=== PATIENT | male | born 1990 | race Caucasian/White ===

== ENCOUNTER 2019-02-06 08:54 | Emergency (ER) | payer BC, SELFPAY ==
[2019-02-06 08:56] VITALS: BP 159/75; PULSE 105; RESP 18; TEMP 36.6; O2SAT 100; BMI 28.5
--- NOTE | 2019-02-06 09:07 | RAD_ITS ---
STUDY: X-RAY - LEFT SHOULDER REASON FOR EXAM: Male, 29 years old. Pain. No known injury. TECHNIQUE: 4 view(s) of the shoulder. COMPARISON: None. FINDINGS: Normal glenohumeral articulation. Normal acromioclavicular joint. Normal acromion. Normal humeral head and visualized proximal humerus. The soft tissue structures are unremarkable. Normal visualized pulmonary apex. RAD/Shoulder min 2 Views IMPRESSION: Normal x-ray examination of the shoulder. Electronically Signed: Marco Antonio Mayo, at 9:43 EST , Service support ,
--- NOTE | 2019-02-06 09:07 | ED.DCSUM_ITS ---
History of Present Illness Chief Complaint: Upper Extremity Injury Informant: Patient Occurred: Today Context: Gradual Onset Timing: Continuous Quality of Pain: Aching Narrative: Patient is a 29-year-old male with no past medical history presenting with atraumatic left shoulder pain. Patient states he woke up from sleep and noticed that his left shoulder was hurting. He states it is over his upper shoulder and then radiate slightly down. It seems to be worse when he puts his hand over his head. He describes the pain as aching. Patient did not take any medication for pain. He notes the pain is slightly better than when he first woke up. 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 He notes he has been working last few days because he has had GI bug. He denies any associated numbness or tingling. He denies any weakness of the hand. He denies any other complaints at this time. Past Medical History - Allergies and Home Meds Allergies/Adverse Reactions: Allergies No Known Allergies Allergy (Verified 02/06/19 08:57) Primary Care Physician: Tereza Hawley MD [STAFF PHYSICIAN] - Past Medical History: None Surgical History: noncontributory Lives: Spouse/ Significant Other Review of Systems General: Denies: Chills, Fever, Sweats Eyes: Denies: Visual changes - bilaterally, Diplopia ENT: Denies: Rhinorrhea, Sore throat Cardiovascular: Denies: Chest pain, Palpitations Respiratory: Denies: Dyspnea, Cough, Dyspnea on exertion Gastrointestinal: Denies: Abdominal pain, Nausea, Vomiting, Diarrhea, Melena, Hematochezia Genitourinary: Denies: Dysuria, Hematuria, Frequency Musculoskeletal: Reports: Extremity Pain - Left shoulder pain. Denies: Back pain, Swelling Skin: Denies: Rash, Wounds Neurological: Denies: Headache, Weakness, Numbness Physical Exam Vital Signs/Narrative: Vital Signs Temp Pulse Resp BP Pulse Ox 02/06/19 08:56 98 F 105 H 18 159/75 H 100 Inital Vital Signs reviewed: Yes Left Shoulder: - - No reproducible tenderness with direct palpation. Range of motion is intact in all planes however patient has had worsening pain abduction above 90 degrees as well as flexion of the elbows against resistance. No tenderness over the head of the biceps tendon.. Negative for: Deformity, Hematoma, Limited ROM General: Well nourished, Well developed Head: Normocephalic, Atraumatic Eyes: Perrl, EOMI ENT: No Trauma, Moist Mucous Membranes Neck: Nontender, Full ROM Cardiovascular: Regular rate, Regular rhythm, No murmurs Respiratory: No distress, CTA bilaterally, Chest nontender Abdomen: Soft, Nontender, Nondistended, Normal bowel sounds Back: Nontender Skin: Normal color, No rash Neurological: Alert, Oriented x3, Cranial nerves II-XII grossly intact, Normal Strength, Normal Sensation, - - Normal strength and sensation of the extrinsic muscles of the hand and in all dermatomes. Psychological: Normal affect, Tearful - During exam Diagnostic/Tx/Re-eval Clinical Impression(s) from Imaging Studies Shoulder X-Ray 02/06/19 09:07 IMPRESSION: Normal x-ray examination of the shoulder. Electronically Signed: Marco Antonio Liunavneet, at 9:43 EST , Service support , - Medical Decision Making Patient is evaluated for atraumatic left shoulder pain. He does have pain with range of motion but range of motion is intact. No obvious bony tenderness or tenderness palpation of the tendinous insertions of the shoulder. X-rays obtained which does not show any significant joint effusion or other acute abnormality. He is neurovascularly intact. I do not suspect joint infection. Patient was treated with Motrin and Tylenol in the emergency room. He is initia lly tachycardic upon arrival but I believe this is secondary to pain and some anxiety. Patient was counseled that his pain is likely from inflammation of the shoulder. 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 He is counseled to return emergency room should he develop any associated chest pain, shortness of breath, fever or difficulty breathing. He is given a work note for today and tomorrow. Patient is counseled on signs and symptoms requiring return to the emergency room. Patient verbalizes agreement and understand this plan. Patient discharged home in stable and improved condition. ED Disposition - Plan for ED Patient: Disposition: Home or Assisted Living Diagnosis: Left shoulder pain Instructions: SHOULDER PAIN (Uncertain Cause) Prescriptions: Ibuprofen [Motrin] 600 mg PO Q6H PRN PRN #20 tab PRN Reason: Pain/Inflammation Prescription Printed Referrals: Tereza Hawley MD [STAFF PHYSICIAN] - Additional Instructions: Likely there is some inflammation in her shoulder that is causing the pain. Anti-inflammatories and rest as well as ice should help it. Return to emergency room if you develop worsening symptoms or if you develop fever, chest pain or difficulty breathing. Please follow-up with a primary care doctor. You been given information for one today.
[2019-02-06] MEDS: Acetaminophen 500 MG Tablet 1000 MG PO (09:15)
[2019-02-06] MEDS: Ibuprofen 600 MG Tablet PO (09:15)
[2019-02-06 10:34] VITALS: PULSE 83; RESP 17; O2SAT 100
== END 2019-02-06 10:35 | disposition home or self-care (01) ==
PROVIDERS: Emergency Provider Emergency Medicine
DX: M25.512 Pain in left shoulder (principal)
CPT/HCPCS: 73030; 99283

== ENCOUNTER 2019-05-11 21:13 | Emergency (ER) | payer BC, SELFPAY ==
[2019-05-11 21:14] VITALS: BP 142/92; PULSE 92; RESP 16; TEMP 36.9; O2SAT 100; BMI 29.7
--- NOTE | 2019-05-11 22:59 | CT_ITS ---
STUDY: CT ABDOMEN AND PELVIS WITH CONTRAST REASON FOR EXAM: Male, 29 years old. PT STATED LOWER ABDOM PAIN X 1 WEEK, HX OF HERNIA RADIATION DOSAGE (If Supplied By Facility): CTDIvol = ( 15.9 ) mGy, DLP = ( 1326.24 ) mGycm TECHNIQUE: Transaxial images were obtained from the dome of the diaphragm to the symphysis pubis without oral contrast. IV 100mL Isovue-300 was administered. Sagittal and coronal images were reconstructed. Individualized dose optimization techniques were used for this CT. COMPARISON: None. FINDINGS: The visualized lung bases are unremarkable. The visualized portions of the heart are within normal limits. Normal liver. Normal gallbladder and extrahepatic biliary system. Normal spleen. Normal pancreas. Normal bilateral adrenal glands. Normal right kidney. Normal left kidney. Normal visualized stomach. Normal small intestine. Normal colon. The appendix is visualized and appears normal. Normal abdominal aorta. Normal inferior vena cava. Normal retroperitoneum. Normal urinary bladder. Normal visualized prostate gland. Normal abdominal wall. Normal osseous structures. CT/Abdomen/Pelvis W IV Cont ONLY IMPRESSION: Normal enhanced CT of the abdomen and pelvis. No hernia identified. Electronically Signed: Fantasma Ramos, at 23:51 EDT Tel , Service support ,
--- NOTE | 2019-05-11 23:00 | ED.VISSUMM ---
- ER Visit Summary Date of Service: 05/11/19 Chief Complaint: Lower quadrant abdominal pain History of Present Illness: The patient is a 29 M history of prior liver biopsy for fatty liver. And prior bilateral inguinal hernia repair as a small child. Patient states for the last week he had right lower quadrant abdominal pain. Today he had nausea with no vomiting. No diarrhea. No constipation. No fever. No dysuria or hematuria no history of stones. No abdominal trauma. Physical Examination: Well-appearing 21-year-old male no acute distress vital signs stable afebrile. H EENT exam unremarkable. Neck nontender. No lymphadenopathy. Lungs clear to auscultation bilaterally. Heart regular rhythm no murmur. Abdomen soft nondistended normal bowel sounds no peritoneal signs. Both upper quadrants and left lower quadrant completely nontender. Nondistended. No obvious masses. No signs of obstruction. His tenderness is below inferior and lower than his right lower quadrant. He has bilateral hernia repairs that are well-healed from years ago. His external exam is nontender. Nonswollen. There is no obvious hernia. There is no testicular tenderness, masses or swelling. No inguinal lymphadenopathy. Back nontender. He is moving all 4 extremities. Neurovascular intact. Neurologically is awake and alert. Test Results: White count of 6 hemoglobin 15. Chemistries normal normal creatinine gap. Liver enzymes normal. UA normal. CT abdomen pelvis with both IV and oral contrast shows no acute abnormality. Read by radiologist reviewed by me. Appendix is seen and is normal. And there is no acute obvious hernia seen. Emergency Department Course and Treatment: Patient with lower abdominal pelvic pain. Appears to be lower than McBurney's point. Appendicitis is a possibility but clinically I think low likelihood. This could be a hernia. There is no signs of obstruction, strangulation or incarceration. CAT scan labs are being obtained. He did not waiting for pain or nausea. Lamonte exam at 00 50 a.m. patient doing well. We went over all test results. Treatment Plan: Follow-up for further evaluation. Disposition: Discharge Impression: Right lower abdominal pain of uncertain etiology This note was generated with [employer] dictation software. It may contain incorrect words, spelling, and punctuation that were not noted in review of the chart prior to signing ED Disposition - Plan for ED Patient: Referrals: Care Physician,No Primary [Primary Care Provider] -
[2019-05-11 23:16] LABS: Bacteria 0 SEEN /hpf (None Seen); Mucous, Urine 0 SEEN /hpf (<or=2+); Red Blood Cells-Urine 0 SEEN /hpf (0-5); Squamous Epithelial Cells - UA 0 SEEN /hpf (0-5)
[2019-05-11 23:20] LABS: Color, Urine Yellow (Yellow); Glucose, Dipstick Normal (Normal); Ketone-Dipstick Negative (Negative); Leukocyte Esterase-Dipstick Negative /ul (Negative); Nitrite-Dipstick Negative (Negative); Occult Blood-Urine Negative /ul (Negative); Protein-Dipstick Negative (Negative); Urine Bilirubin Dipstick Negative (Negative); Urine Clarity Clear (Clear); Urine Urobilinogen Normal (Normal)
[2019-05-11 23:20] LABS: Absolute Lymphocyte Count 1.66 X10^3/uL (0.83-4.51); Absolute Neutrophil Count 3.5 X10^3/uL (2.0-7.7); Basophil# 0.06 X10^3/uL; Eosinophil# 0.24 X10^3/uL; Eosinophils% 3.8 % (0-5); Hematocrit 47.2 % (40-54); Hemoglobin 15.9 g/dL (13.0-16.5); Lymphocyte # 1.66 X10^3/ul (4.0); Lymphocyte % 26.4 % (19-41); Mean Corp Hgb Conc 33.7 g/dL (32-36); Mean Corpuscular Hgb 29.9 pg (27.0-32.0); Mean Corpuscular Volume 88.9 fL (80-94); Mean Platelet Vol. 9.4 fl (6.2-12.0); Monocyte# 0.78 X10^3/uL; Monocyte% 12.4 % (0-10); NRBC Flagged by Analyzer 0 % (0-5); Neutrophil # 3.53 X10^3/uL (2.7-7.7); Neutrophil % 56.2 % (47-70); Platelet Count 365 K/mm3 (150-450); RBC Distribution Width CV 12.4 % (11.6-14.6); RBC Distribution Width SD 40.6 fl (35.1-43.9); Red Blood Count 5.31 M/mm3 (4.6-6.2); White Blood Count 6.3 K/mm3 (4.4-11.0)
[2019-05-11 23:30] LABS: White Blood Cells 0-5 SEEN /hpf (0-5)
[2019-05-11 23:36] LABS: AST(SGOT) 29 U/L (15-37); Alanine Aminotransfer ALT/SGPT 61 U/L (16-61); Albumin, Serum 4.3 g/dL (3.2-5.0); Alkaline Phosphatase 69 U/L (45-117); Anion Gap 7 (5-15); BUN 15 mg/dL (7-18); BUN/Creat Ratio 13.3 RATIO (10-20); Bilirubin, Direct 0.07 mg/dL (0.00-0.30); Calcium,Total 8.8 mg/dL (8.5-10.1); Chloride 106 mmol/L (98-107); Creatinine, Serum 1.13 mg/dL (0.70-1.30); EST Glomerular Filtration Rate 82 mL/min (>60); Est Glom Filt Rate - Afr Amer 99 mL/min (>60); Estimated Creatinine Clearance 103.66 ml/min; Globulin 3.5 g/dL (2.2-4.2); Glucose 99 mg/dL (74-106); Protein, Total 7.8 g/dL (6.4-8.2); Sodium Level 138 mmol/L (136-145)
[2019-05-12 00:03] VITALS: BP 124/63; PULSE 60; RESP 18; O2SAT 96
--- NOTE | 2019-05-12 00:52 | ED.DEP ---
ED Disposition - Plan for ED Patient: Disposition: Home or Assisted Living Instructions: ABDOMINAL PAIN, Unkown Cause, (Male) Referrals: Kyle Green MD [NON-STAFF] - 1 Week if not improving
[2019-05-12 01:01] VITALS: BP 134/97; PULSE 66; RESP 18; O2SAT 99
== END 2019-05-12 01:02 | disposition home or self-care (01) ==
PROVIDERS: Emergency Provider Emergency Medicine
DX: R10.31 Right lower quadrant pain (principal); R11.0 Nausea
CPT/HCPCS: 74177; 80048; 80076; 81001; 85025; 99283; Q9967; A4216

== ENCOUNTER → 2021-11-24 | Outpatient (CLI) | payer BC, SELFPAY ==
--- NOTE | 2021-11-24 08:05 | CT_ITS ---
STUDY: CT MAXILLOFACIAL SINUSES REASON FOR EXAM: Male, 31 years old. SINUSITIS RADIATION DOSAGE (If Supplied By Facility): CTDIvol = ( 33.06 ) mGy, DLP = ( 825.58 ) mGycm TECHNIQUE: The patient was scanned in a multi detector CT scanner. High resolution axial imaging was performed without the administration of intravenous contrast material. Sagittal and coronal images were reconstructed. Individualized dose optimization techniques were used for this CT. COMPARISON: None. FINDINGS: FRONTAL SINUSES: Normal aeration, without mucosal inflammatory disease. ETHMOIDAL SINUSES: Mild degree of mucosal thickening more prominent in the right ethmoid sinus. MAXILLARY SINUSES: Mild degree of mucosal thickening of both maxillary sinuses. SPHENOIDAL SINUSES: Normal aeration, without mucosal inflammatory disease. There is compromise of the bilateral maxillary infundibula due to mucosal hypertrophy. Normal bilateral middle turbinates. There is hypertrophy of the left inferior nasal turbinate. There is a left sided nasal septal deviation with a left sided nasal septal spur. There is patency of the bilateral nasal airways. The visualized osseous structures are normal. The visualized bilateral orbital contents are normal. CT/Sinus/Facial Bone IMPRESSION: Mild degree of mucosal thickening of the maxillary sinus bilaterally as well as the ethmoid sinuses more prominent on the right side. Mucosal thickening at the level of the maxillary infundibula bilaterally. Nasal septal deviation to the left side of the midline. Electronically Signed: Marco Antonio Mayo MD at 9:24 EDT ,
--- NOTE | 2021-11-24 08:10 | RAD_ITS ---
STUDY: X-RAY - ESOPHAGUS (BARIUM SWALLOW) WITH FLUOROSCOPY REASON FOR EXAM: Male, 31 years old. GERD TECHNIQUE: 17 view(s) of the esophagus were obtained following swallowing of barium. FLUOROSCOPY TIME (if supplied): (34 seconds) minutes/seconds COMPARISON: None. FINDINGS: There is no demonstrated esophageal foreign body. There is no demonstrated stricture or mucosal abnormality. Normal gastroesophageal junction, without a demonstrated hiatal hernia. The patient ingested a 12 mm tablet of barium without any difficulty. Normal visualized aortic arch and descending thoracic aorta. Normal visualized pulmonary parenchyma. Normal visualized osseous structures of the thorax. RAD/Esophagus Dual Contrast IMPRESSION: Normal plain film x-ray examination (barium swallow) of the esophagus. Electronically Signed: Marco Antonio Mayo MD at 9:32 EDT ,
== END | disposition home or self-care (01) ==
LOC: CT 08:03
PROVIDERS: Referring Provider Otolaryngology; Visit Provider Otolaryngology
DX: K21.9 Gastro-esophageal reflux disease without esophagitis (principal); J32.8 Other chronic sinusitis
CPT/HCPCS: 70486; 74221